=== PATIENT | female | born 1965 | race Caucasian/White ===

== ENCOUNTER 2016-09-27 16:13 | Emergency (ER) | payer OTHER ==
--- NOTE | 2016-09-27 18:18 | DIAGNOSTIC IMAGING REPORT ---
PROCEDURE: XR CHEST 2 VIEW INDICATION: COUGH TECHNIQUE: PA and lateral views. COMPARISON: Chest 07/21/2010 FINDINGS: Lungs are clear. Heart and mediastinum are normal. Thorax is normal. IMPRESSION: 1. Negative chest.
--- NOTE | 2016-09-27 18:36 | ED NURSING NOTES ---
Clinical Report - Nurses [facility] [place] [address] [address] 09/27/2016 16:14 Patient: JESSICA MOYA TRIAGE Triage time 16:30. Acuity: LEVEL 3. Chief Complaint: NAUSEA and VOMITING and (sudden onset). Alert. --16:38 Florence Mead R.N. 16:30 09/27/16. BP: 124/73. HR: 88. RR: 18. O2 saturation: 100%. Temp: 97.5 F. Pain level now: 010. --16:38 Florence Mead R.N. Weight: 86.1 kg stated. Height/Length: 67 inches Per Patient. BMI: 29.8. --16:34 Florence Mead R.N. Medications Imipramine HCl 75 mg, as needed. --16:31 Florence Mead R.N. Ibuprofen. --16:31 Florence Mead R.N. Prescribed Prednisone, didn't take, 1 week ago. --16:32 Florence Mead R.N. Amoxicillin Oral, , just finished/bronchitis/sinus infection. --16:32 Florence Mead R.N. Ventolin HFA Inhalation 2 puffs, 4x a day as needed. --16:33 Florence Mead R.N. Allergies Codeine. --16:31 Florence Mead R.N. History Arrived by private vehicle. Historian: patient. Accompanied by family. Primary physician (none). This started just prior to arrival and today. Treatment HVAC/R INSTRUCTOR: None. PAST MEDICAL HX: Immunizations: up-to-date. The patient is post-menopausal. SOCIAL HX: Former smoker, end date 1983. No alcohol use or drug use. SELF HARM ASSESSMENT: A self harm assessment was performed. The patient answered "no" to the question "Do you have thoughts of harming or killing yourself?". NUTRITIONAL RISK ASSESSMENT: The nutritional risk assessment revealed no deficiencies. FUNCTIONAL ASSESSMENT: Functional assessment: no impairments noted. LEARNING NEEDS ASSESSMENT: The learning needs assessment revealed no barriers. --16:38 Florence Mead R.N. ADDITIONAL SURGERIES: Cervic dysplasia surgery. Uterine ablation. --16:34 Florence Mead R.N. Interventions ID band on patient. To room. --16:38 Florence Mead R.N. PHYSICAL ASSESSMENT GENERAL / NEURO / PSYCH: Alert. Oriented X 4. RESPIRATORY: Respirations not labored. ( Pt states productive cough). --16:39 Florence Mead R.N. NURSING PROGRESS NOTES 16:39 09/27/16. Patient identifiers checked. Call light placed in reach. Bed placed in lowest position. Patient ready for evaluation- chart flagged. --16:39 Florence Mead R.N. 16:52 09/27/2016 Site #1 started via IV in the right forearm with an 20g angiocath, with aseptic technique and good blood return; two attempts. Saline lock flushed with 10 mL saline (unable to get rainbow set). --16:52 Florence Mead R.N. 17:23 09/27/2016 Started bag #1 1000 mL IV Fluids IV NS (Saline); at 999 mL/hr via site #1 via IV pump. Confirmed 5 rights. --17:23 Florence Mead R.N. 17:24 09/27/2016 Zofran (Ondansetron HCl) IVP 4 mg given over 2 minute(s) via site #1. Confirmed 5 rights. --17:24 Florence Mead R.N. 17:24 09/27/16. ( electronic calibration technician here to draw blood.). --17:24 Florence Mead R.N. EKG time: (1727). EKG was ordered, performed by a tech and shown to the ED physician. --18:04 Nate Rodriguez ER Tech1 18:28 09/27/2016 IV Fluids IV NS Discontinued: bag #1 completed. Total amount infused: 1000 mL. IV patency established. IV site checked: no pain, redness, or swelling. IV flushed thoroughly. --18:28 Beto Fowler R.N. 18:59 09/27/2016 Site #1 removed upon discharge. Catheter intact. Bandage applied. --18:59 Florecne Mead R.N. DISPOSITION / DISCHARGE 18:50 09/27/16. BP: 124/68. HR: 91. RR: 18. O2 saturation: 100%. Temp: 98.1 F. Pain level now: 0/10. --19:01 Florence Mead R.N. 18:51. Condition at departure: improved. No learning barriers present. Reviewed medication(s) information. Prescription(s) given to the patient. Reviewed referral to family practice for followup. Verbalized understanding. Written instructions provided. The patient was discharged home and accompanied by family. She left the Emergency Department ambulatory and via private vehicle. Family member driving. --19:02 Florence Mead R.N. Locked/Released at 09/27/2016 19:12 by Florence Mead R.N.
--- NOTE | 2016-09-27 18:36 | ED CLINICAL REPORT ---
Clinical Report - Physicians/Mid Levels [facility] [address] [place] [address] 09/27/2016 16:14 Patient: JESSICA MOYA Time Seen: 16:46; initial patient contact, initial documentation, patient care assumed. Arrived- By private vehicle. Historian- patient. HISTORY OF PRESENT ILLNESS Chief Complaint: VOMITING. This started today and is still present but is better now. It was abrupt in onset. No recent travel. She has had nausea and vomiting. The vomiting has occurred only once. No diarrhea, black stools, bloody stools, abdominal pain or constipation. No flank pain, history of possible bad food exposure or change in routine. Has not recently been camping or on antibiotics. She has had contact with a sick family member. Symptoms of the sick contact include nausea, vomiting and diarrhea. (multiple family members sick). They have had similar symptoms. The illness is described as mild. (got sudden onset of feeling hot, dizzy and felt lightheaded, went to bed and laid down, felt a little better but felt nausea, so came here, vomited on way here). Similar symptoms previously: None. Recent medical care: The patient was seen recently in the office. ( went to x2 wks ago for uri stuff, dx with bronchitis, given steroids, which she didn't take, also given inhaler and abx, which she did finish, feels better, before had some gurgling in her chest, xray done, was supposed to f/u yesterday, but didn't go). REVIEW OF SYSTEMS No fever, muscle aches, difficulty with urination, dark urine or headache. No chest pain, difficulty breathing or fainting episodes. Denies current . She has had dizziness. All systems otherwise negative, except as recorded above. PAST HISTORY Negative. ADDITIONAL SURGERIES: Cervic dysplasia surgery. Uterine ablation. --16:34 Florence Mead R.N. SOCIAL HISTORY Former smoker. No alcohol use or drug use. No recent travel. Is a local resident. FAMILY HISTORY Negative. ADDITIONAL NOTES The nursing notes have been reviewed with agreement regarding the chief complaint, HPI, ROS, PMH and patient medications and allergies. PHYSICAL EXAM Vital Signs: 09/27/2016 16:30 BP: 124/73. HR: 88. RR: 18. O2 saturation: 100%. Temp: 97.5 F. Pain level now: 0/10. Have been reviewed as normal and appear to be correct. Appearance: Alert. Oriented X3. No acute distress. Eyes: Pupils equal, round and reactive to light. Eyes normal inspection. Neck: Normal inspection. Neck supple. CVS: Normal heart rate and rhythm. Heart sounds normal. Pulses normal. Respiratory: No respiratory distress. Breath sounds normal. Abdomen: Soft and nontender. Bowel sounds normal. No organomegaly. No mass. Back: Normal inspection. Skin: Skin warm and dry. Normal skin color. No rash. Normal skin turgor. Extremities: Extremities exhibit normal ROM. No lower extremity edema. Neuro: Oriented X 3. No motor deficit. No sensory deficit. LABS, X-RAYS, AND EKG EKG: EKG time: (172). No acute process. No acute ischemia. Normal EKG. Normal EKG. The study has been interpreted contemporaneously by me (and dr lizarraga). The EKG appears to be a good tracing. Interpretation time: 172. Chest X-ray: Normal Chest X-Ray. (IMPRESSION: 1. Negative chest. Electronically Final signed by:Jonh Mcnamara MD 09/27/2016 6:18:59 PM). The X-rays were interpreted by the radiologist and contemporaneously by me. Laboratory Tests: CBC w Diff: (DILMA: 09/27/2016 17:25) ( MsgRcvd 09/27/2016 17:43) Final results Test Result Flag Units (Reference) WHITE BLOOD COUNT 10.9 K/uL (4.5-11.5) RED BLOOD COUNT 4.36 M/uL (4.00-5.20) HEMOGLOBIN 13.2 gm/dL (12.0-16.0) HEMATOCRIT 39.7 % (36.0-46.0) MEAN CELL VOLUME 91 fL (80-100) MEAN CORPUSCULAR HGB 30 pg (26-34) MEAN CORPUSCULAR HGB CONC 33 g/dL (31-37) RED CELL DISTRIBUTION WIDTH 13.3 % (11.6-14.8) PLATELET COUNT 328 K/uL (150-400) NEUTROPHIL % 82.9 H % (50-75) LYMPH % 12.0 L % (25-40) MONO % 4.0 % (3-14) EOSINOPHIL % 0.9 % (0-4) BASOPHIL % 0.2 % (0-2) CMP: (DILMA: 09/27/2016 17:25) ( MsgRcvd 09/27/2016 17:55) Final results Test Result Flag Units (Reference) GLUCOSE 116 H mg/dL (70-110) BUN 11 mg/dL (7-18) CREATININE 0.8 mg/dL (0.6-1.3) Estimated GFR >60 mL/min Estimated GFR- >60 mL/min Note: Persistent reduction over 3 months in eGFR<60 mL/min/1.73 m2 defines CKD. Patients with eGFR values>=60 mL/min/1.73 m2 may also have CKD if evidence ofpersistent proteinuria. Additional information may be foundat www.kidney.org. SODIUM 141 mmol/L (136-145) POTASSIUM 3.9 mmol/L (3.5-5.1) CHLORIDE 107 mmol/L (98-107) CARBON DIOXIDE 22 mmol/L (21-32) CALCIUM 8.6 mg/dL (8.5-10.1) TOTAL PROTEIN 6.9 g/dL (6.4-8.2) ALBUMIN 3.7 g/dL (3.3-5.0) BILIRUBIN, TOTAL 0.4 mg/dL (0.0-1.0) ALKALINE PHOSPHATASE 67 U/L (46-116) AST (SGOT) 16 U/L (15-37) ALT (SGPT) 22 U/L (12-78) LIPASE 129 U/L (73-393) AMYLASE 39 U/L (25-115) . PROGRESS AND PROCEDURES Patient and family counseled in person regarding the patient's stable condition, test results and diagnosis. 1820. Differential Diagnosis: I considered labyrinthitis, drug-related etiology, benign positional vertigo, brainstem TIA, near-syncope, anxiety and metaphorical dizziness such as depression, chronic fatigue, etc as a possible cause of dizziness in this patient. This is a partial list of diagnoses considered. I considered gastritis, peptic ulcer disease, ischemia, gastroesophageal reflux disease, gastroparesis, colonic obstruction, colon cancer, gastroenteritis, cholecystitis, pancreatitis, viral syndrome, enterocolitis, urinary tract infection, hepatitis and sepsis as a possible cause of vomiting in this patient. This is a partial list of diagnoses considered. Above considerations are based on history, physical exam, reassessment, laboratory data and EKG. Differential diagnosis was discussed with patient. Disposition: Discharged home in good and improved condition (18:36). Condition: good and stable. CLINICAL IMPRESSION Intractable vomiting with nausea. No dehydration or volume depletion. Not bilious. Acute dizziness INSTRUCTIONS Warnings: GENERAL WARNINGS: Return or contact your physician immediately if your condition worsens or changes unexpectedly, if not improving as expected, or if other problems arise. SPECIFICALLY, return if you develop pain in the abdomen or pelvis, fever, the inability to keep fluids down, blood in vomitus, blood in diarrhea, fainting or lightheadedness. Prescription Medications: Zofran 4 mg: Take 1 orally every six hours as needed for nausea/vomiting. Dispense ten (10). No refills. Substitution is permissible. Meclizine 25 mg: Take 1 tablet orally every 8 hours as needed for dizziness. Dispense thirty (30). No refills. Follow-up: Follow up with your doctor in two days even if well. Call for an appointment. Summary of care provided to patient. Understanding of the discharge instructions verbalized by patient. (Electronically signed by Jennifer Faust A.R.N.P. 09/27/2016 20:03)
--- NOTE | 2016-09-27 18:36 | ED NURSING NOTES ---
Clinical Report - Nurses [facility] [place] [address] [place] [address] 09/27/2016 16:14 Patient: JESSICA MOYA TRIAGE Triage time 16:30. Acuity: LEVEL 3. Chief Complaint: NAUSEA and VOMITING and (sudden onset). Alert. --16:38 Florence Mead R.N. 16:30 09/27/16. BP: 124/73. HR: 88. RR: 18. O2 saturation: 100%. Temp: 97.5 F. Pain level now: 010. --16:38 Florence Mead R.N. Weight: 86.1 kg stated. Height/Length: 67 inches Per Patient. BMI: 29.8. --16:34 Florence Mead R.N. Medications Imipramine HCl 75 mg, as needed. --16:31 Florence Mead R.N. Ibuprofen. --16:31 Florence Mead R.N. Prescribed Prednisone, didn't take, 1 week ago. --16:32 Florence Mead R.N. Amoxicillin Oral, , just finished/bronchitis/sinus infection. --16:32 Florence Mead R.N. Ventolin HFA Inhalation 2 puffs, 4x a day as needed. --16:33 Florence Mead R.N. Allergies Codeine. --16:31 Florence Mead R.N. History Arrived by private vehicle. Historian: patient. Accompanied by family. Primary physician (none). This started just prior to arrival and today. Treatment TECHNICAL SPECIALIST CYTOGENETICS: None. PAST MEDICAL HX: Immunizations: up-to-date. The patient is post-menopausal. SOCIAL HX: Former smoker, end date 1983. No alcohol use or drug use. SELF HARM ASSESSMENT: A self harm assessment was performed. The patient answered "no" to the question "Do you have thoughts of harming or killing yourself?". NUTRITIONAL RISK ASSESSMENT: The nutritional risk assessment revealed no deficiencies. FUNCTIONAL ASSESSMENT: Functional assessment: no impairments noted. LEARNING NEEDS ASSESSMENT: The learning needs assessment revealed no barriers. --16:38 Florence Mead R.N. ADDITIONAL SURGERIES: Cervic dysplasia surgery. Uterine ablation. --16:34 Florence Mead R.N. Interventions ID band on patient. To room. --16:38 Florence Mead R.N. PHYSICAL ASSESSMENT GENERAL / NEURO / PSYCH: Alert. Oriented X 4. RESPIRATORY: Respirations not labored. ( Pt states productive cough). --16:39 Florence Mead R.N. NURSING PROGRESS NOTES 16:39 09/27/16. Patient identifiers checked. Call light placed in reach. Bed placed in lowest position. Patient ready for evaluation- chart flagged. --16:39 Florence Mead R.N. 16:52 09/27/2016 Site #1 started via IV in the right forearm with an 20g angiocath, with aseptic technique and good blood return; two attempts. Saline lock flushed with 10 mL saline (unable to get rainbow set). --16:52 Florence Mead R.N. 17:23 09/27/2016 Started bag #1 1000 mL IV Fluids IV NS (Saline); at 999 mL/hr via site #1 via IV pump. Confirmed 5 rights. --17:23 Florence Mead R.N. 17:24 09/27/2016 Zofran (Ondansetron HCl) IVP 4 mg given over 2 minute(s) via site #1. Confirmed 5 rights. --17:24 Florence Mead R.N. 17:24 09/27/16. ( design technology teacher here to draw blood.). --17:24 Florence Mead R.N. EKG time: (1727). EKG was ordered, performed by a tech and shown to the ED physician. --18:04 Nate Rodriguez ER Tech1 18:28 09/27/2016 IV Fluids IV NS Discontinued: bag #1 completed. Total amount infused: 1000 mL. IV patency established. IV site checked: no pain, redness, or swelling. IV flushed thoroughly. --18:28 Beto Fowler R.N. 18:59 09/27/2016 Site #1 removed upon discharge. Catheter intact. Bandage applied. --18:59 Florence Mead R.N. DISPOSITION / DISCHARGE 18:50 09/27/16. BP: 124/68. HR: 91. RR: 18. O2 saturation: 100%. Temp: 98.1 F. Pain level now: 0/10. --19:01 Florence Mead R.N. 18:51. Condition at departure: improved. No learning barriers present. Reviewed medication(s) information. Prescription(s) given to the patient. Reviewed referral to family practice for followup. Verbalized understanding. Written instructions provided. The patient was discharged home and accompanied by family. She left the Emergency Department ambulatory and via private vehicle. Family member driving. --19:02 Florence Mead R.N. Locked/Released at 09/27/2016 19:12 by Florence Mead R.N.
--- NOTE | 2016-09-27 18:36 | ED ORDER SUMMARY ---
..... Patient: JESSICA MOYA OrderSheet [facility] VisitID: [id number] [address] [place] [address] 51y, F Registration Date/Time: 09/27/2016 ORDER SHEET Weight: 86.1 kg (stated) Allergies: Codeine GENERAL ORDERS: Chest 2V Urgent (16:53 09/27/2016 HBivens A.R.N.P.) (Ack 17:05 LNations ER Tech1) (17:12 LNations ER Tech1) CBC w Diff Urgent (16:53 09/27/2016 HBivens A.R.N.P.) (Ack 17:04 LNations ER Tech1) (18:34 LSullivan R.N.) CMP Urgent (16:53 09/27/2016 HBivens A.R.N.P.) (Ack 17:05 LNations ER Tech1) (18:34 LSullivan R.N.) UA-Culture if indicated Urgent (16:53 09/27/2016 HBivens A.R.N.P.) (Ack 17:05 LNations ER Tech1) (Cancelled: Physician Order18:59 LSullivan R.N.) Amylase Urgent (16:53 09/27/2016 HBivens A.R.N.P.) (Ack 17:05 LNations ER Tech1) (18:34 LSullivan R.N.) Lipase Urgent (16:53 09/27/2016 HBivens A.R.N.P.) (Ack 17:05 LNations ER Tech1) (18:34 LSullivan R.N.) EKG - ER Stat (16:53 09/27/2016 HBivens A.R.N.P.) (Ack 17:04 LNations ER Tech1) (17:34 Tiago) MEDICATION ORDERS: IV FLUIDS: IV Saline Lock (16:52 09/27/2016 LSullivan R.N. verbal order read back to HBivens A.R.N.P.) (16:52 LSullivan R.N.) IV NS : initial bolus 1000 mL (1000 mL/hr), then none - (NOW) (16:53 09/27/2016 HBivens A.R.N.P.) (17:23 LSullivan R.N.) Zofran IV 4 mg (NOW) (16:53 09/27/2016 HBivens A.R.N.P.) (17:24 LSullivan R.N.) IV Saline Lock (16:53 09/27/2016 HBivens A.R.N.P.) (Cancelled: Duplicate Order17:25 LSullivan R.N.) ORDER SHEET NOTES: [Electronically signed by Florence Mead R.N. (19:12 09/27/2016)] [Electronically signed by Jennifer FaustR.N.PAnjelica (20:03 09/27/2016)] [Electronically locked/signed by Florence Mead R.N. (19:12 09/27/2016)]
--- NOTE | 2016-09-27 18:36 | ED ORDER SUMMARY ---
..... Patient: JESSICA MOYA OrderSheet [facility] VisitID: [id number] [address] [place] [address] 51y, F Registration Date/Time: 09/27/2016 ORDER SHEET Weight: 86.1 kg (stated) Allergies: Codeine GENERAL ORDERS: Chest 2V Urgent (16:53 09/27/2016 HBivens A.R.N.P.) (Ack 17:05 LNations ER Tech1) (17:12 LNations ER Tech1) CBC w Diff Urgent (16:53 09/27/2016 HBivens A.R.N.P.) (Ack 17:04 LNations ER Tech1) (18:34 LSullivan R.N.) CMP Urgent (16:53 09/27/2016 HBivens A.R.N.P.) (Ack 17:05 LNations ER Tech1) (18:34 LSullivan R.N.) UA-Culture if indicated Urgent (16:53 09/27/2016 HBivens A.R.N.P.) (Ack 17:05 LNations ER Tech1) (Cancelled: Physician Order18:59 LSullivan R.N.) Amylase Urgent (16:53 09/27/2016 HBivens A.R.N.P.) (Ack 17:05 LNations ER Tech1) (18:34 LSullivan R.N.) Lipase Urgent (16:53 09/27/2016 HBivens A.R.N.P.) (Ack 17:05 LNations ER Tech1) (18:34 LSullivan R.N.) EKG - ER Stat (16:53 09/27/2016 HBivens A.R.N.P.) (Ack 17:04 LNations ER Tech1) (17:34 Tiago) MEDICATION ORDERS: IV FLUIDS: IV Saline Lock (16:52 09/27/2016 LSullivan R.N. verbal order read back to HBivens A.R.N.P.) (16:52 LSullivan R.N.) IV NS : initial bolus 1000 mL (1000 mL/hr), then none - (NOW) (16:53 09/27/2016 HBivens A.R.N.P.) (17:23 LSullivan R.N.) Zofran IV 4 mg (NOW) (16:53 09/27/2016 HBivens A.R.N.P.) (17:24 LSullivan R.N.) IV Saline Lock (16:53 09/27/2016 HBivens A.R.N.P.) (Cancelled: Duplicate Order17:25 LSullivan R.N.) ORDER SHEET NOTES: [Electronically signed by Florence Mead R.N. (19:12 09/27/2016)] [Electronically signed by Jennifer FaustR.N.PAnjelica (20:03 09/27/2016)] [Electronically locked/signed by Florence Mead R.N. (19:12 09/27/2016)]
--- NOTE | 2016-09-27 20:03 | ED DISCHARGE INSTRUCTIONS ---
Patient: JESSICA MOYA General Instructions [facility] VisitID: [id number] [place] [address] 51y, F Registration Date/Time: 09/27/2016 Intractable vomiting with nausea. No dehydration or volume depletion. Not bilious. Acute dizziness INSTRUCTIONS Warnings: GENERAL WARNINGS: Return or contact your physician immediately if your condition worsens or changes unexpectedly, if not improving as expected, or if other problems arise. SPECIFICALLY, return if you develop pain in the abdomen or pelvis, fever, the inability to keep fluids down, blood in vomitus, blood in diarrhea, fainting or lightheadedness. Prescription Medications: Zofran 4 mg: Take 1 orally every six hours as needed for nausea/vomiting. Dispense ten (10). No refills. Substitution is permissible. Meclizine 25 mg: Take 1 tablet orally every 8 hours as needed for dizziness. Dispense thirty (30). No refills. Follow-up: Follow up with your doctor in two days even if well. Call for an appointment. Summary of care provided to patient. Understanding of the discharge instructions verbalized by patient. ADDITIONAL INFORMATION Vomiting [6Yr-Adult] Vomiting is a common symptom that may be due to different causes. These include gastroenteritis ("stomach flu"), food poisoning and gastritis. There are other more serious causes of vomiting which may be hard to diagnose early in the illness. Therefore, it is important to watch for the warning signs listed below. The main danger from repeated vomiting is dehydration. This is due to excess loss of water and minerals from the body. When this occurs, body fluids must be replaced. Home Care: If symptoms are severe, rest at home for the next 24 hours. You may use acetaminophen (Tylenol) or ibuprofen (Motrin, Advil) to control fever, unless another medicine was prescribed. [NOTE : If you have chronic liver or kidney disease or ever had a stomach ulcer or GI bleeding, talk with your doctor before using these medicines.] (Aspirin should never be used in anyone under 18 years of age who is ill with a fever. It may cause severe liver damage.) Avoid tobacco and alcohol use, which may worsen your symptoms. If medicines for vomiting were prescribed, take as directed. Once vomiting stops, then follow these guidelines: During The First 12-24 Hours follow the diet below: FRUIT JUICES: Apple, grape juice, clear fruit drinks, and electrolyte replacement drinks. BEVERAGES: Soft drinks without caffeine; mineral water (plain or flavored), decaffeinated tea and coffee. SOUPS: Clear broth, consomm and bouillon DESSERTS: Plain gelatin, popsicles and fruit juice bars. As you feel better, you may add 6-8 ounces of yogurt per day. During The Next 24 Hours you may add the following to the above: Hot cereal, plain toast, bread, rolls, crackers Plain noodles, rice, mashed potatoes, chicken noodle or rice soup Unsweetened canned fruit (avoid pineapple), bananas Limit caffeine and chocolate. No spices or seasonings except salt. During The Next 24 Hours Gradually resume a normal diet, as you feel better and your symptoms lessen. Follow Up with your doctor as advised if you are not improving over the next 2-3 days. Get Prompt Medical Attention if any of the following occur: Constant right-sided lower abdominal pain or increasing general abdominal pain Continued vomiting (unable to keep liquids down) for 24 hours Frequent diarrhea (more than 5 times a day); blood (red or black color) or mucus in diarrhea Reduced urine output or extreme thirst Weakness, dizziness or fainting Unusually drowsy or confused Fever of 100.4F (38C) oral or higher, not better with fever medication Yellow color of the eyes or skin Dizziness [Uncertain Cause] Dizziness is a common symptom sometimes described as "lightheadedness" or feeling like you are going to faint. If it lasts for only a few seconds and is related to changes in position (such as getting up after lying or sitting for a long time), it is usually not a sign of anything serious. Dizziness that lasts for minutes to hours, or comes on for no apparent reason, may be a sign of a more serious problem (such as dehydration, a medicine reaction, disease of the heart or brain). Today's exam did not show an exact cause for your dizzy spell . Sometimes additional tests are required before a cause can be found. Therefore, it is important to follow up with your doctor if your symptoms continue. Home Care: 1) If a dizzy spell occurs and lasts more than a few seconds, lie down until it passes. If you are lying down, then you cannot hurt yourself by falling if you do faint. 2) Do not drive or operate dangerous equipment until the dizzy spells have stopped for at least 48 hours. 3) If dizzy spells occur with sudden standing, this may be a sign of mild dehydration. Drink extra fluids over the next few days. 4) If you recently started a new medicine or if you had the dose of a current medicine increased (especially blood pressure medicine), talk with the prescribing doctor about your symptoms. Dose adjustments may be needed. Follow Up with your doctor for further evaluation within the next seven days, if your symptoms continue. Get Prompt Medical Attention if any of the following occur: -- Worsening of your symptoms -- Fainting, headache or seizure -- Repeated vomiting -- Feeling like you or the room is spinning -- Chest, arm, neck, back or jaw pain -- Palpitations (the sense that your heart is fluttering or beating fast or hard) -- Shortness of breath -- Blood in vomit or stool (black or red color) -- Weakness of an arm or leg or one side of the face -- Difficulty with speech or vision Ondansetron Oral disintegrating tablet What is this medicine? ONDANSETRON (on ERICK se shelley) is used to treat nausea and vomiting caused by chemotherapy. It is also used to prevent or treat nausea and vomiting after surgery. How should I use this medicine? These tablets are made to dissolve in the mouth. Do not try to push the tablet through the foil backing. With dry hands, peel away the foil backing and gently remove the tablet. Place the tablet in the mouth and allow it to dissolve, then swallow. While you may take these tablets with water, it is not necessary to do so. Talk to your trailer sections assembler regarding the use of this medicine in children. Special care may be needed. What side effects may I notice from receiving this medicine? Side effects that you should report to your doctor or health physician primary care sports medicine as soon as possible: allergic reactions like skin rash, itching or hives, swelling of the face, lips, or tongue breathing problems dizziness fast or irregular heartbeat feeling faint or lightheaded, falls fever and chills swelling of the hands and feet tightness in the chest Side effects that usually do not require medical attention (report to your doctor or health physician primary care sports medicine if they continue or are bothersome): constipation or diarrhea headache What may interact with this medicine? Do not take this medicine with any of the following medications: -apomorphine -cisapride -dofetilide -dronedarone -pimozide -thioridazine -ziprasidone This medicine may also interact with the following medications: -carbamazepine -phenytoin -rifampicin -tramadol -other medicines that prolong the QT interval (cause an abnormal heart rhythm) What if I miss a dose? If you miss a dose, take it as soon as you can. If it is almost time for your next dose, take only that dose. Do not take double or extra doses. Where should I keep my medicine? Keep out of the reach of children. Store between 2 and 30 degrees C (36 and 86 degrees F). Throw away any unused medicine after the expiration date. What should I tell my health care provider before I take this medicine? They need to know if you have any of these conditions: heart disease history of irregular heartbeat liver disease low levels of magnesium or potassium in the blood an unusual or allergic reaction to ondansetron, granisetron, other medicines, foods, dyes, or preservatives or trying to get breast-feeding What should I watch for while using this medicine? Check with your doctor or health physician primary care sports medicine as soon as you can if you have any sign of an allergic reaction. Meclizine Hydrochloride Oral tablet What is this medicine? MECLIZINE (MEK alvin lima) is an antihistamine. It is used to prevent nausea, vomiting, or dizziness caused by motion sickness. It is also used to prevent and treat vertigo (extreme dizziness or a feeling that you or your surroundings are tilting or spinning around). How should I use this medicine? Take this medicine by mouth with a glass of water. Follow the directions on the prescription label. If you are using this medicine to prevent motion sickness, take the dose at least 1 hour before travel. If it upsets your stomach, take it with food or milk. Take your doses at regular intervals. Do not take your medicine more often than directed. Talk to your trailer sections assembler regarding the use of this medicine in children. Special care may be needed. What side effects may I notice from receiving this medicine? Side effects that you should report to your doctor or health physician primary care sports medicine as soon as possible: fainting spells fast or irregular heartbeat Side effects that usually do not require medical attention (report to your doctor or health physician primary care sports medicine if they continue or are bothersome): constipation difficulty passing urine difficulty sleeping headache stomach upset What may interact with this medicine? barbiturate medicines for inducing sleep or treating seizures digoxin medicines for anxiety or sleeping problems, like alprazolam, diazepam or temazepam medicines for hay fever and other allergies medicines for mental depression medicines for movement abnormalities as in Parkinson's disease, or for stomach problems medicines for pain medicines that relax muscles What if I miss a dose? If you miss a dose, take it as soon as you can. If it is almost time for your next dose, take only that dose. Do not take double or extra doses. Where should I keep my medicine? Keep out of the reach of children. Store at room temperature between 15 and 30 degrees C (59 and 86 degrees F). Keep container tightly closed. Throw away any unused medicine after the expiration date. What should I tell my health care provider before I take this medicine? They need to know if you have any of these conditions: asthma glaucoma prostate trouble stomach problems urinary problems an unusual or allergic reaction to meclizine, other medicines, foods, dyes, or preservatives or trying to get breast-feeding What should I watch for while using this medicine? If you are taking this medicine on a regular schedule, visit your doctor or health physician primary care sports medicine for regular checks on your progress. You may get dizzy, drowsy or have blurred vision. Do not drive, use machinery, or do anything that needs mental alertness until you know how this medicine affects you. Do not stand or sit up quickly, especially if you are an older patient. This reduces the risk of dizzy or fainting spells. Alcohol can increase possible dizziness. Avoid alcoholic drinks. Your mouth may get dry. Chewing sugarless gum or sucking hard candy, and drinking plenty of water may help. Contact your doctor if the problem does not go away or is severe. This medicine may cause dry eyes and blurred vision. If you wear contact lenses you may feel some discomfort. Lubricating drops may help. See your eye doctor if the problem does not go away or is severe. You have been given the following additional information: Vomiting (6Y-Adult) Dizziness, Unk Cause Ondansetron Oral disintegrating tablet Meclizine Hydrochloride Oral tablet (Electronically signed by Jennifer Faust A.R.N.P. 09/27/2016 20:03)
--- NOTE | 2016-09-27 20:03 | ED MED RECONCILIATION SUMMARY ---
Patient: JESSICA MOYA Medication Reconciliation Report [facility] VisitID: [id number] [address] [place] [address] 51y, F Registration Date/Time: 09/27/2016 Weight: 86.1 kg Height/Length: 67 in. BMI: 29.8 ALLERGIES: Codeine The patient's Home Medications are listed below: THE FOLLOWING MEDICATIONS NEED TO BE RECONCILED: Amoxicillin Oral, just finished/bronchitis/sinus infection Ibuprofen Imipramine HCl 75 mg Prescribed Prednisone, didn't take, 1 week ago Ventolin HFA Inhalation 2 puffs, 4x a day The source(s) of the original Home Medication information: Not obtained. The following Medications were given to the patient in the Emergency Department: IV NS IV Fluids bolus 0, then 999 mL/hr, administered: 09/27/2016 5:23:00 PM Zofran [IVP] IVP 4 mg, administered: 09/27/2016 5:24:00 PM The following Medications were prescribed to the patient: Zofran 4 mg: Take 1 orally every six hours as needed for nausea/vomiting. Dispense ten (10). No refills. Substitution is permissible. -- Jennifer Faust, Jose.R.N.P. Meclizine 25 mg: Take 1 tablet orally every 8 hours as needed for dizziness. Dispense thirty (30). No refills. -- Jennifer Faust A.R.N.P.
--- NOTE | 2016-09-27 20:03 | ED MAR SUMMARY ---
..... Medication Administration Record [facility] [address] [place] [address] Patient: JESSICA MOYA Visit ID: [id number] 51y, F Weight: 86.1 kg Height/Length: 67 in BMI: 29.8 ALLERGIES: Codeine Start 17:23 09/27/2016 Florence Mead R.N., Stop 18:28 09/27/2016 Beto Fowler R.N. Medication Administered: IV NS (SALINE), Dose: IV Fluids, Rate: 999 mL/hr, Dispensed: 1000 mL bag, Site: #1 right forearm. Medication Ordered: IV NS : initial bolus 1000 mL (1000 mL/hr), then none - (NOW). Given 17:24 09/27/2016 Florence Mead RMaría Elena Medication Administered: ZOFRAN [IVP] (ONDANSETRON HCL), Dose: 4 mg IVP over 2 minute(s), Site: #1 right forearm. Medication Ordered: Zofran IV 4 mg (NOW).
--- NOTE | 2016-09-27 20:03 | ED MED RECONCILIATION SUMMARY ---
Patient: JESSICA MOYA Medication Reconciliation Report [facility] VisitID: [id number] [address] [place] [address] 51y, F Registration Date/Time: 09/27/2016 Weight: 86.1 kg Height/Length: 67 in. BMI: 29.8 ALLERGIES: Codeine The patient's Home Medications are listed below: THE FOLLOWING MEDICATIONS NEED TO BE RECONCILED: Amoxicillin Oral, just finished/bronchitis/sinus infection Ibuprofen Imipramine HCl 75 mg Prescribed Prednisone, didn't take, 1 week ago Ventolin HFA Inhalation 2 puffs, 4x a day The source(s) of the original Home Medication information: Not obtained. The following Medications were given to the patient in the Emergency Department: IV NS IV Fluids bolus 0, then 999 mL/hr, administered: 09/27/2016 5:23:00 PM Zofran [IVP] IVP 4 mg, administered: 09/27/2016 5:24:00 PM The following Medications were prescribed to the patient: Zofran 4 mg: Take 1 orally every six hours as needed for nausea/vomiting. Dispense ten (10). No refills. Substitution is permissible. -- Jennifer Faust, Jose.R.N.P. Meclizine 25 mg: Take 1 tablet orally every 8 hours as needed for dizziness. Dispense thirty (30). No refills. -- Jennifer Faust A.R.N.P.
--- NOTE | 2016-09-27 20:03 | ED MAR SUMMARY ---
..... Medication Administration Record [facility] [address] [place] [address] Patient: JESSICA MOYA Visit ID: [id number] 51y, F Weight: 86.1 kg Height/Length: 67 in BMI: 29.8 ALLERGIES: Codeine Start 17:23 09/27/2016 Florence Mead R.N., Stop 18:28 09/27/2016 Beto Fowler R.N. Medication Administered: IV NS (SALINE), Dose: IV Fluids, Rate: 999 mL/hr, Dispensed: 1000 mL bag, Site: #1 right forearm. Medication Ordered: IV NS : initial bolus 1000 mL (1000 mL/hr), then none - (NOW). Given 17:24 09/27/2016 Florence Mead RMaría Elena Medication Administered: ZOFRAN [IVP] (ONDANSETRON HCL), Dose: 4 mg IVP over 2 minute(s), Site: #1 right forearm. Medication Ordered: Zofran IV 4 mg (NOW).
== END 2016-09-27 18:51 | disposition home or self-care (01) ==
LOC: ED SRH 16:13
DX: R11.2 Nausea with vomiting, unspecified (principal); R42 Dizziness and giddiness; Z87.891 Personal history of nicotine dependence; Z88.5 Allergy status to narcotic agent
CPT/HCPCS: 90074; 90100; 92235; 92530; 95059